=== PATIENT | male | born 1955 | race Caucasian/White ===

== ENCOUNTER → 2019-04-02 09:11 | Outpatient (BNVA) | payer MEDICARE, OTHER, SELFPAY | PROVIDERS: Family Provider Nurse Practitioner Family; PCP Nurse Practitioner Family; Visit Provider Nurse Practitioner Family | DX: E11.9 Type 2 diabetes mellitus without complications (principal); G47.9 Sleep disorder, unspecified | CPT/HCPCS: 36416; 83036 ==

== ENCOUNTER → 2019-07-06 09:00 | Outpatient (BNVA) | payer MEDICARE, OTHER, SELFPAY | PROVIDERS: Family Provider Nurse Practitioner Family; PCP Nurse Practitioner Family; Visit Provider Nurse Practitioner Family | DX: E11.9 Type 2 diabetes mellitus without complications (principal) | CPT/HCPCS: 82044; 83036 ==

== ENCOUNTER → 2019-07-20 09:00 | Outpatient (BNVA) | payer MEDICARE, OTHER, SELFPAY | PROVIDERS: Family Provider Nurse Practitioner Family; PCP Nurse Practitioner Family; Visit Provider Nurse Practitioner Family | DX: I10 Essential (primary) hypertension (principal); G56.03 Carpal tunnel syndrome, bilateral upper limbs; E78.5 Hyperlipidemia, unspecified; M72.2 Plantar fascial fibromatosis; E11.9 Type 2 diabetes mellitus without complications; Z00.00 Encounter for general adult medical examination without abnormal findings; Z68.32 Body mass index [BMI] 32.0-32.9, adult | CPT/HCPCS: 80053; 80061; 84153; 84439; 84443 ==

== ENCOUNTER → 2019-09-30 10:02 | Outpatient (BNVA) | payer MEDICARE, OTHER, SELFPAY | PROVIDERS: Family Provider Nurse Practitioner Family; PCP Nurse Practitioner Family; Visit Provider Nurse Practitioner Family | DX: E11.9 Type 2 diabetes mellitus without complications (principal); Z68.30 Body mass index [BMI] 30.0-30.9, adult | CPT/HCPCS: 83036 ==

== ENCOUNTER → 2019-12-30 08:29 | Outpatient (BNVA) | payer MEDICARE, OTHER, SELFPAY | PROVIDERS: Family Provider Nurse Practitioner Family; PCP Nurse Practitioner Family; Visit Provider Nurse Practitioner Family | DX: E11.9 Type 2 diabetes mellitus without complications (principal); Z68.31 Body mass index [BMI] 31.0-31.9, adult | CPT/HCPCS: 83036 ==

== ENCOUNTER → 2020-04-11 09:47 | Outpatient (BNVA) | payer MEDICARE, OTHER, SELFPAY | PROVIDERS: Family Provider Nurse Practitioner Family; PCP Nurse Practitioner Family; Visit Provider Nurse Practitioner Family | DX: E11.9 Type 2 diabetes mellitus without complications (principal); E78.5 Hyperlipidemia, unspecified | CPT/HCPCS: 80053; 80061; 83036 ==

== ENCOUNTER → 2020-05-02 11:14 | Outpatient (BNVA) | payer MEDICARE, OTHER, SELFPAY | PROVIDERS: Family Provider Nurse Practitioner Family; PCP Nurse Practitioner Family; Visit Provider Nurse Practitioner Family | DX: R10.9 Unspecified abdominal pain (principal); R31.9 Hematuria, unspecified | CPT/HCPCS: 80053; 81000; 85025 ==

== ENCOUNTER 2020-05-04 07:54 | Outpatient (CLI) | payer MEDICARE, OTHER, SELFPAY ==
--- NOTE | 2020-05-04 08:15 | CT_ITS ---
WS: [id number] CT ABDOMEN AND PELVIS NONCONTRAST HISTORY: R31.9 - Hematuria, unspecified TECHNIQUE: Imaging performed through the abdomen and pelvis. Coronal and sagittal reformats are submi tted. All CT scans at [facility] use at least one of these dose optimization techniques: automated exposure control; mA and/or kV adjustment per patient size (includes targeted exams where d ose is matched to clinical indication); or iterative reconstruction. DLP: 1195.38 mGycm COMPARISON: None available. Lower thorax: Lung bases are clear. Visualized heart is normal. No hiatal hernia. Liver: Normal size liver. No mass or bile duct dilatation. Gallbladder: Normal gallbladder. Pancreas: Mild fatty replacement. Spleen: Normal size with granulomata. Adrenal glands: Normal. No mass. Right kidney: Normal size kidney with no mass or hydronephrosis. Left kidney: Exophytic low-attenuation mass from the upper pole measures 2.4 cm. There are a few smal l central parapelvic cyst. No obstruction or calcification. Ureter is normal caliber. Aorta: Mild atherosclerosis abdominal aorta with no aneurysm. No free fluid, intraperitoneal air or significant lymphadenopathy. GI tract: Mild constipation. Moderate amount of diverticula in the distal colon. No acute diverticuli tis. The appendix is normal. Abdominal wall: Very tiny umbilical hernia containing fat only. Pelvis: Normally distended urinary bladder. Very slight lobulation of the prostate gland calcificatio ns. Osseous structures: Mild lumbar spondylosis. No osteoblastic or osteolytic bone disease. CT/CT kidney stone 54069 IMPRESSION: 1. No renal calcifications or obstruction. 2. Exophytic 2.4 cm mass from the upper pole LEFT kidney. May be a small cyst or complex cyst. Without further evaluation neoplasm is not excluded but though t less likely. Consider follow-up renal ultrasound for evaluation. 3. Atherosclerosis aorta. 4. Distal colonic diverticulosis without diverticulitis.
== END 2020-05-04 07:55 | disposition home or self-care (01) ==
LOC: RADWPI 08:00
PROVIDERS: PCP Nurse Practitioner Family; Visit Provider Nurse Practitioner Family
DX: R31.9 Hematuria, unspecified (principal); N28.89 Other specified disorders of kidney and ureter; I70.0 Atherosclerosis of aorta; K57.90 Diverticulosis of intestine, part unspecified, without perforation or abscess without bleeding
CPT/HCPCS: 74176

== ENCOUNTER 2020-05-05 07:52 | Outpatient (CLI) | payer MEDICARE, OTHER, SELFPAY ==
[2020-05-05] MEDS: iohexol 300 mg/mL 100 mL Btl IV (08:30)
--- NOTE | 2020-05-05 09:30 | CT_ITS ---
WS: [id number] CT ABDOMEN PELVIS TECHNIQUE: Noncontrast CT of the abdomen and contrast-enhanced CT of the abdomen and pelvis with seng nal and sagittal reformatted images. CLINICAL INFORMATION: K57.90 - Diverticulosis of intestine, part unspecified, without perforation or abscess without bleeding COMPARISON: May 04, 2020 DLP: 1208.[address] scans at [facility] use at least one of these dose optimization techniques: automat ed exposure control; mA and/or kV adjustment per patient size (includes targeted exams where dose is matched to clinical indication); or iterative reconstruction. FINDINGS: Mild diffuse fatty infiltration liver. Portal vein and splenic vein are patent. Cholelithiasis or sma ll polyp in the gallbladder neck. This can be further evaluated with ultrasound. Lung bases are well aerated. Calcified granuloma left lower lobe. Fatty atrophy of the pancreas. Splenic granulomas. Norm al GE junction. Adrenal glands are normal. Normal renal parenchymal enhancement. Bilateral renal cyst s are unchanged. No hydronephrosis in either kidney. No evidence of obstruction. Sigmoid diverticulosis. Thickening of the sigmoid colon is new since the prior examination suspicious for early or mild diverticulitis. No evidence of drainable abscess or fluid collection. Recommend co rrelation with symptoms of infection. No free fluid in the abdomen or pelvis. Normal caliber abdomina l aorta. Aortic calcification. Tiny fat-containing umbilical hernia. Normal nephrographic and excretory phases. Normal ureteral excretion. CT/CT abdomen pelvis wo/w 10132 IMPRESSION: 1. Mild diffuse thickening of the sigmoid colon with a small amount of surroun ding induration suspicious for early or mild acute diverticulitis. This is new from previous. 2. No other significant changes from previous. 3. Diffuse fatty infiltration liver. 4. Suggestion of tiny polyp or calculus in the gallbladder near the gallbladde r neck. No gallbladder wall thickening. This can be followed up with ultrasound . 5. Stable bilateral renal cysts. 6. No hydronephrosis or evidence of obstruction.
== END 2020-05-05 07:53 | disposition home or self-care (01) ==
LOC: RAD 07:56
PROVIDERS: PCP Nurse Practitioner Family; Visit Provider Nurse Practitioner Family
DX: K57.90 Diverticulosis of intestine, part unspecified, without perforation or abscess without bleeding (principal); Q61.02 Congenital multiple renal cysts; K76.0 Fatty (change of) liver, not elsewhere classified
CPT/HCPCS: 74178

== ENCOUNTER → 2020-05-09 10:13 | Outpatient (BNVA) | payer MEDICARE, OTHER, SELFPAY | PROVIDERS: PCP Nurse Practitioner Family; Visit Provider Nurse Practitioner Family | DX: R10.9 Unspecified abdominal pain (principal) | CPT/HCPCS: 81000 ==

== ENCOUNTER 2020-07-08 08:20 | Outpatient (CLI) | payer MEDICARE, OTHER, SELFPAY ==
--- NOTE | 2020-07-08 09:30 | US_ITS ---
WS: [id number] RIGHT UPPER QUADRANT ULTRASOUND HISTORY: Possible gallbladder polyp or stone seen on prior CT. COMPARISON: 05/05/2020 Liver: 16.1 cm in length. Liver is normal size. There is moderate coarsened echotexture from hepatic steatosis. No mass or bile duct dilatation. Gallbladder: Normally distended gallbladder with no stones or wall thickening. No polyp identified. CBD: 0.5 cm Pancreas: Normal size and echogenicity. Right kidney: 11.2 cm in length. Normal size and echogenicity. No hydronephrosis or mass. Aorta and IVC: Unremarkable abdominal aorta and IVC. No ascites. US/US gall bladder 83220 IMPRESSION: 1. Negative gallbladder. No cholelithiasis or polyp is identified by ultrasoun d. 2. No bile duct dilatation. 3. Moderate hepatic steatosis.
== END 2020-07-08 08:21 | disposition home or self-care (01) ==
LOC: US 08:22
PROVIDERS: PCP Nurse Practitioner Family; Visit Provider Nurse Practitioner Family
DX: R93.2 Abnormal findings on diagnostic imaging of liver and biliary tract (principal); K76.0 Fatty (change of) liver, not elsewhere classified
CPT/HCPCS: 76705

== ENCOUNTER → 2020-07-11 08:55 | Outpatient (BNVA) | payer MEDICARE, OTHER, SELFPAY | PROVIDERS: PCP Nurse Practitioner Family; Visit Provider Nurse Practitioner Family | DX: E11.9 Type 2 diabetes mellitus without complications (principal) | CPT/HCPCS: 83036 ==

== ENCOUNTER → 2020-07-13 14:56 | Outpatient (BNVA) | payer MEDICARE, OTHER, SELFPAY | PROVIDERS: PCP Nurse Practitioner Family; Visit Provider Internal Medicine | DX: R10.9 Unspecified abdominal pain (principal); Z01.812 Encounter for preprocedural laboratory examination; Z20.822 Contact with and (suspected) exposure to COVID-19 | CPT/HCPCS: 87635 ==

== ENCOUNTER 2020-07-18 08:22 | Day surgery (SDC) | payer MEDICARE, OTHER, SELFPAY ==
--- NOTE | 2020-07-18 08:39 | ANES.PREANE2 ---
Pre-Anesthetic Assessment Pre-Anesthetic Assessment: Height/Weight: Height 1.75 m Weight 93.894 kg Preop Diagnosis: abdominal pain Proposed Procedure: Operation Date: 07/18/20 10:00 Proposed Procedures p EGD 79801 R10.9(Not Applicable) - Benedicto Harper MD Familial anesthetic complications: None Was Beta Mei taken within 24 hours: N/A Was Clonidine taken within 24 hours: N/A Last intake: NPO > 8 hrs Social: Social History: No alcohol and No tobacco Exam: Pre-Anes Outpt Exam: alert, oriented x 3, clear to auscultation bilaterally and regular rate & rhythm Airway: Cervical ROM: WNL MP: 4 Dentition: Other (missing teeth) Metabolic: Metabolic: DM and Hyperlipidemia Anesthetic Plan: ASA status: 3 Anesthesia: MAC Risk of > 500 ml blood loss (7ml/kg in children): No PFSH Anesthesia PFSH: Medical History (Updated 07/13/20 @ 14:51 by Benedicto Harper MD) Hyperlipidemia Type 2 diabetes mellitus without complication Family History Other CAD (coronary artery disease) Cancer Social History Smoking and tobacco status: former smoker Data Anesthesia Cardiac Studies: No Data to Display
--- NOTE | 2020-07-18 08:56 | P.HP_ITS ---
Same Day Surgery H&P Indication for Procedure/HPI DATE OF PROCEDURE: July 18, 2020 CHIEF COMPLAINT/INDICATIONFOR SURGICAL PROCEDURE: Abdominal pain and unintentional weight loss. PREOP DIAGNOSIS: abdominal pain PLANNED PROCEDRUE: Operation Date: 07/18/20 10:00 Proposed Procedures p EGD 01490 R10.9(Not Applicable) - Benedicto Harper MD Medications/Allergies* Home Medications Medication Instructions Recorded Confirmed Type brimonidine 0.2 % eye drops 1 drop OPHTHALMIC (EYE) Q8H 03/20/19 07/14/20 History latanoprost 0.005 % eye drops 1 drop OPHTHALMIC (EYE) ONCE 03/20/19 07/14/20 History timolol 0.5 % eye drops 1 drop OPHTHALMIC (EYE) BID 03/20/19 07/14/20 History ibuprofen 200 mg capsule 200 mg PO Q6H PRN 05/13/19 07/14/20 History aspirin [Baby Aspirin] 81 mg PO DAILY 07/14/20 07/14/20 History docusate sodium [Stool Softener] 100 mg PO BID 07/14/20 07/14/20 History Allergies/Adverse Reactions Allergy/AdvReac Type Severity Reaction Status Date / Time Penicillins Allergy Unknown Verified 07/13/20 14:13 Pertinent History/Comorbid Conditions* Medical History (Updated 07/13/20 @ 14:51 by Benedicto Harper MD) Hyperlipidemia Type 2 diabetes mellitus without complication Family History (Updated 03/20/19 @ 09:20 by Larissa Isabel LPN) CAD (coronary artery disease) Cancer Social History Smoking and tobacco status: former smoker Pertinent Exam Findings alert, oriented x 3, clear to auscultation bilaterally, regular rate & rhythm, operative site marked and procedure specific exam findings Recommendations Surgery/Procedure today Coding Level of Care Code Acute Plant Facilities Technician for Kunal Olivo
[2020-07-18 09:08] VITALS: BP 152/103; PULSE 81; RESP 18; TEMP 36.6; O2SAT 97
[2020-07-18] MEDS: sodium chloride 0.9% 1,000 ML 30 ML IV (09:30)
[2020-07-18 10:35] LABS: Glucose Point of Care 247 mg/dL (70-110)
--- NOTE | 2020-07-18 11:35 | ANE.PACU2 ---
Inpatient post-anesthesia follow up: Airway intact: Yes Vital signs: Temperature 97.9 F Pulse Rate 81 Respiratory Rate 18 Blood Pressure 152/103 Pulse Oximetry 97 Oxygen Delivery Me thod Room Air Oxygen Flow Rate Fraction of Inspir ed Oxygen Hydration adequate: Yes Nausea and vomiting: No Pain level: 1 Mental status: Baseline
[2020-07-18 11:40] VITALS: BP 149/92; PULSE 79; RESP 16; TEMP 36.3; O2SAT 94
[2020-07-19 15:44] LABS: H. Pylori / CLO Test Negative
== END 2020-07-18 12:30 | disposition home or self-care (01) ==
PROVIDERS: PCP Nurse Practitioner Family; Visit Provider Internal Medicine
PROC: 0DJ08ZZ Inspection of Upper Intestinal Tract, Via Natural or Artificial Opening Endoscopic (ICD-10-PCS; CPT 43235; principal; 2020-07-18 10:00)
DX: R10.9 Unspecified abdominal pain (principal); R63.4 Abnormal weight loss; K25.9 Gastric ulcer, unspecified as acute or chronic, without hemorrhage or perforation; K29.70 Gastritis, unspecified, without bleeding; Z79.82 Long term (current) use of aspirin; E78.5 Hyperlipidemia, unspecified; E11.9 Type 2 diabetes mellitus without complications; Z82.49 Family history of ischemic heart disease and other diseases of the circulatory system; Z87.891 Personal history of nicotine dependence
CPT/HCPCS: 36416; 43239; 82962; 87077; 96360; 96361; J2704; J7030

== ENCOUNTER 2020-07-23 16:17 | Emergency (ER) | payer MEDICARE, OTHER, SELFPAY ==
[2020-07-23 16:23] VITALS: BP 153/100; PULSE 104; RESP 16; TEMP 36.7; O2SAT 96; BMI 30.5
[2020-07-23 17:28] LABS: Add Urine Microscopic? NO; Charge for UA Resulting for Rev
[2020-07-23 17:29] VITALS: BP 145/96; PULSE 96; RESP 16; O2SAT 98
[2020-07-23 17:31] LABS: Bilirubin Urine Neg (Negative); Blood Urine Neg (Negative); Glucose Urine UA 4+ (Normal); Ketones Urine 1+ (Negative); Leukocyte Esterase Urine Negative (Negative); Nitrate Urine Negative (Negative); Protein Urine Neg (Negative); Urine Appearance Clear (CLEAR); Urine Color Yellow (Yellow); Urobilinogen Urine Norm (Negative); pH Urine 5 (5-7)
--- NOTE | 2020-07-23 17:40 | W.ED.ABDPA2 ---
HPI - Abdominal Pain General: Chief Complaint: Abdominal Pain Stated Complaint: ABD PAIN/ DIARRHEA Time Seen by Provider: 07/23/20 16:32 Source: patient Mode of arrival: ambulatory Limitations: no limitations History of Present Illness: HPI narrative: Patient is a 65-year-old male with a history of diabetes mellitus, insulin-dependent who presents to the emergency department with abdominal pain. Symptoms have been intermittent and ongoing for a few months but have gotten worse in the last week or so. Because of the pain he had an upper GI endoscopy 6 days ago and since then his pain has been much worse. Pain is in the epigastric region and also in his lower abdomen and radiates to his back. Patient is so severe that he is unable to sleep. He also states that he started having diarrhea that started about 5 to 6 days ago. He has several episodes and it is now getting much better. He denies any fever. Because he is unable to take the pain any longer presents to the emergency department to be evaluated. MD elicited complaint: abdominal pain Pertinent past history: none Onset (ago): month(s) Pain Consistency: intermittent Location: Epigastric, RLQ and LLQ Severity: severe Quality: stabbing Radiation: back Exacerbating factors: nothing Relieving factors: nothing Associated Symptoms: Reports diarrhea; Denies anorexia, belching, bloating, change in stool character, chills, coffee ground emesis, constipation, GI cramping, dyspepsia, dysuria, excessive flatus, fever(s), heartburn, hematochezia, hematuria, hematemesis, fecal incontinence, loose stools, melena, nausea, poor appetite, syncope and vomiting Review of Systems General: Reports: 10 or more systems reviewed and unremarkable except in HPI and below Const: Denies: fever(s) or chills Card: Denies: syncope GI: Reports: diarrhea; Denies: nausea, vomiting, hematemesis, coffee ground emesis, heartburn, constipation, bloating, GI cramping, belching, excessive flatus, fecal incontinence, change in stool character, hematochezia or melena : Denies: dysuria or hematuria Physical Exam Const: COMMON NORMALS: no acute distress, average body habitus, patient oriented x3, no limitations, healthy appearing, alert and well nourished HENMT: COMMON NORMALS: normocephalic, atraumatic and moist oral mucous membranes HEAD & SCALP: normocephalic and atraumatic Neck/C-Spine: COMMON NORMALS: no meningeal signs and no JVD Resp: COMMON NORMALS: normal respiratory effort, No retractions, No use of accessory muscles, clear to auscultation bilaterally and percussion normal AUSCULTATION: clear to auscultation bilaterally PERCUSSION: percussion normal Cardio: COMMON NORMALS: no JVD, regular rate, regular rhythm, S1 normal heart sound present, S2 normal heart sound present, No gallops present (Cardio), No clicks present (Cardio), No murmurs present (Cardio), No rub (Cardio) and Peripheral pulses 2+ throughout RATE: regular rate RHYTHM: regular rhythm HEART SOUNDS: S1 normal heart sound present and S2 normal heart sound present PERIPHERAL PULSES: Peripheral pulses 2+ throughout GI: COMMON NORMALS: Normal to inspection, nondistended, normoactive bowel sounds present, Soft to palpation, No hepatosplenomegaly present, no masses and no bruits PALPATION: Yes Soft to palpation, Yes Tenderness to palpation present (GI) (epigastric), No Guarding due to palpation present (GI), No Rigid due to palpation and Yes No hepatosplenomegaly present Extremity: COMMON NORMALS: normal to inspection, full ROM, capillary refill normal, no calf tenderness and no pedal edema Neuro: COMMON NORMALS: patient oriented x3 SENSORIUM/ORIENTATION: Yes alert MENINGEAL SIGNS: Yes no meningeal signs Skin: COMMON NORMALS: no rashes or lesions noted, no wounds, turgor normal, no jaundice, no petechiae and no mottling GENERAL SKIN EXAM: no rashes or lesions noted and turgor normal Course Reevaluation(s): Reevaluation #1: Discussed his lab and imaging findings with him, unremarkable for significant acute findings. Discussed performing a trial of metoclopramide in case this is related to gastroparesis or other form of neuropathy affecting his GI tract. He was open to try this. He will also follow-up with his primary care provider. He voiced understanding and is in agreement with the plan. Time: 20:24 Vital Signs: Vital signs: Vital Signs Temperature 98.1 F 07/23/20 16:23 Pulse Rate 86 07/23/20 20:05 Respiratory Rate 16 07/23/20 20:05 Blood Pressure 153/86 07/23/20 20:05 Pulse Oximetry 96 07/23/20 20:05 MDM - Abdominal Pain MDM Narrative: Medical decision making narrative: 65-year-old male who presents with a history of abdominal pain that has been ongoing for a few months but seems to be getting a little worse. He is an insulin-dependent diabetic patient. He had an upper GI endoscopy 6 days ago and ever since he has been having diarrhea. Evaluation in the emergency department is unremarkable including laboratory work-up as well as CT scan. Because he is diabetic and his pain is longstanding and monitoring if he has gastroparesis and autonomic neuropathy. He apparently was diagnosed with either gastritis or gastric ulcer following the upper GI endoscopy. As a trial he will try metoclopramide to see if this helps his symptoms in case it is related to gastroparesis. He will otherwise continue his home medications. Medical Records: Attestation: I reviewed the patient's medical records. Lab Data: Attestation: I reviewed the patient's lab results. Labs: Lab Results 07/23/20 07/23/20 07/23/20 Range/Units 17:12 17:36 17:36 WBC 10.0 (4.0-10.0) 10^3/ uL RBC 5.16 (4.1-5.3) 10^6/u L Hgb 15.3 (11.7-16.6) g/dL Hct 46.6 (42.0-52.0) % MCV 90.3 (80-94) fL MCH 29.7 (28.0-34.0) pg MCHC 32.8 (30.0-36.0) g/dL RDW 13.3 (12.1-15.1) % Plt Count 304 (130-400) 10^3/c mm MPV 10.7 H (7.4-10.4) fL Neut % (Auto) 72.4 % Lymph % (Auto) 18.1 % [place] % (Auto) 7.0 % Eos % (Auto) 1.6 % Baso % (Auto) 0.6 % Neut # (Auto) 7.25 (1.8-7.7) 10^3/u L Lymph # (Auto) 1.8 (0.8-4.8) 10^3/u L [place] # (Auto) 0.7 (0.2-0.9) 10^3/u L Eos # (Auto) 0.2 (0.0-0.8) 10^3/u L Baso # (Auto) 0.1 (0.0-0.1) 10^3/u L Nucleated RBC % (a uto) 0 % Nucleated RBCs # 0.0 /100WBC Sodium 134 L (136-145) mmol/L Potassium 4.5 (3.5-5.1) mmol/L Chloride 100 (98-107) mmol/L Carbon Dioxide 20 L (22-29) mmol/L Anion Gap 18.5 (5-19) BUN 18 (8-23) mg/dL Creatinine 0.7 (0.7-1.2) mg/dL GFR Calculation 112.5 (90-130) mL/min Glucose 325 H (65-115) mg/dL Calculated Osmolal ity 292 (285-295) mOsm/k g Lactate (0.5-2.2) mmol/L Calcium 8.8 (8.5-10.5) mg/dL Total Bilirubin 0.4 (0.15-1.2) mg/dL AST 14 (0-40) U/L ALT 22 (0-41) U/L Alkaline Phosphata se 62 (40-130) IU/L Creatine Kinase 72 (39-308) U/L C-Reactive Protein 0.6 (0.0-4.9) mg/L Total Protein 7.1 (6.6-8.7) g/dL Albumin 4.0 (3.5-5.2) g/dL Globulin 3.1 (1.3-4.6) g/dL Lipase 37 (13-60) U/L Urine Color Yellow (Yellow) Urine Appearance Clear (CLEAR) Urine pH 5 (5-7) Ur Specific Gravit y 1.020 (1.005-1.030) Urine Protein Neg (Negative) Urine Glucose (UA) 4+ H (Normal) Urine Ketones 1+ H (Negative) Urine Blood Neg (Negative) Urine Nitrate Negative (Negative) Urine Bilirubin Neg (Negative) Urine Urobilinogen Norm (Negative) mg/dL Ur Leukocyte Myah ase Negative (Negative) 07/23/20 Range/Units 17:36 WBC (4.0-10.0) 10^3/ uL RBC (4.1-5.3) 10^6/u L Hgb (11.7-16.6) g/dL Hct (42.0-52.0) % MCV (80-94) fL MCH (28.0-34.0) pg MCHC (30.0-36.0) g/dL RDW (12.1-15.1) % Plt Count (130-400) 10^3/c mm MPV (7.4-10.4) fL Neut % (Auto) % Lymph % (Auto) % [place] % (Auto) % Eos % (Auto) % Baso % (Auto) % Neut # (Auto) (1.8-7.7) 10^3/u L Lymph # (Auto) (0.8-4.8) 10^3/u L [place] # (Auto) (0.2-0.9) 10^3/u L Eos # (Auto) (0.0-0.8) 10^3/u L Baso # (Auto) (0.0-0.1) 10^3/u L Nucleated RBC % (a uto) % Nucleated RBCs # /100WBC Sodium (136-145) mmol/L Potassium (3.5-5.1) mmol/L Chloride (98-107) mmol/L Carbon Dioxide (22-29) mmol/L Anion Gap (5-19) BUN (8-23) mg/dL Creatinine (0.7-1.2) mg/dL GFR Calculation (90-130) mL/min Glucose (65-115) mg/dL Calculated Osmolal ity (285-295) mOsm/k g Lactate 2.6 H (0.5-2.2) mmol/L Calcium (8.5-10.5) mg/dL Total Bilirubin (0.15-1.2) mg/dL AST (0-40) U/L ALT (0-41) U/L Alkaline Phosphata se (40-130) IU/L Creatine Kinase (39-308) U/L C-Reactive Protein (0.0-4.9) mg/L Total Protein (6.6-8.7) g/dL Albumin (3.5-5.2) g/dL Globulin (1.3-4.6) g/dL Lipase (13-60) U/L Urine Color (Yellow) Urine Appearance (CLEAR) Urine pH (5-7) Ur Specific Gravit y (1.005-1.030) Urine Protein (Negative) Urine Glucose (UA) (Normal) Urine Ketones (Negative) Urine Blood (Negative) Urine Nitrate (Negative) Urine Bilirubin (Negative) Urine Urobilinogen (Negative) mg/dL Ur Leukocyte Myah ase (Negative) Imaging Data ^: CT Abd/Pel: Attestation: I personally reviewed and interpreted this imaging study as follows: Radiologist's impression: [id number] [place], [place] [id number] Scan ReportSigned Patient: Amadeo Gaines #: [id number]: 1955cct#:[id number]/Sex: 65 / MADM Date: 07/23/20Loc: ERRoom/Bed:Attending Dr: Ordering Provider/Ordering MD: Chandler De La Paz MD, [facility] [place] Date of Service: 07/23/20 Procedure(s): CT abdomen pelvis w con* [id number] Accession Number(s): [id number] Report Number: [id number] PROCEDURE INFORMATION: Exam: CT Abdomen And Pelvis With Contrast Exam date and time: 07/23/2020 6:23 PM Age: 65 years old Clinical indication: Abdominal pain; Generalized; Patient HX: C/O intermittent abd pain x months worsening x 1 week w diarrhea TECHNIQUE: Imaging protocol: Computed tomography of the abdomen and pelvis with contrast. Total images: 241 Radiation optimization: All CT scans at this facility use at least one of these dose optimization techniques: automated exposure control; mA and/or kV adjustment per patient size (includes targeted exams where dose is matched to clinical indication); or iterative reconstruction. Contrast material: OMNI 300; Contrast volume: 95 ml; Contrast route: INTRAVENOUS (IV); COMPARISON: No relevant prior studies available. RADIATION DOSE METRICS: Total DLP (mGy-cm): 1620.33 FINDINGS: Lungs: Limited assessment of the lung bases fails to reveal evidence for active cardiopulmonary process. Liver: No visible hepatic mass or cystic structure. Gallbladder and bile ducts: Normal. No calcified stones. No ductal dilation. Pancreas: Moderate fatty replacement of pancreas. No visible pancreatic ductal ectasia. Spleen: Small splenic hemangioma. Splenic calcified granulomas of antecedent disease. Spleen otherwise unremarkable. Adrenal glands: Adrenal glands unremarkable. Kidneys and ureters: No hydronephrosis or perinephric fluid bilaterally. No visible nephrolithiasis or visible ureterolithiasis. Bilateral small simple renal cortical cysts. No follow-up recommended. Stomach and bowel: Diverticulosis coli, most extensive sigmoid colon, without visible evidence for acute diverticulitis. Nonobstructive bowel pattern. No visible adynamic or reactive ileus. Appendix: The appendix is visualized and appears noninflamed. Intraperitoneal space: No visible evidence of mesenteric lymphadenitis or active mesenteritis/panniculitis. No visible pneumoperitoneum or intraperitoneal ascites. Vasculature: Portal vein patent. The abdominal aorta is nonaneurysmal. Moderate arterial sclerotic disease. Lymph nodes: No current visible evidence of active mesenteric or retroperitoneal lymphadenopathy. Urinary bladder: Urinary bladder unremarkable. Reproductive: Mild prostate hypertrophy. Bones/joints: No visible active or acute osseous pathology. Soft tissues: Bilateral small inguinal hernias containing fat only, left slightly larger than right. Other findings: Obesity. CT/CT abdomen pelvis w con* [id number] IMPRESSION: 1. Currently no visible evidence for acute abdominal or pelvic pathologic process. 2. Extensive diverticulosis coli, most abundant sigmoid colon, without visible evidence for acute diverticulitis. COMMENTS: Consistent with the [employer]'s Incidental Findings Committee white paper (J Am Mina Radiol 2018): Any incidental renal lesion less than 1 cm or classified as too small to characterize, or any incidental cystic renal lesion characterized as simple-appearing, is likely benign. No follow-up imaging is recommended for these lesions per consensus recommendations based on imaging criteria. Radiation Dose CTDIVOL = (mGy): DLP = 1620.33 (mGy-cm) Dictated By:Cholo Mathews By:Cholo Mathews Date/Time:07/23/20D/ 33 Discharge Plan Discharge Patient Disposition: Home Clinical Impression: Abdominal pain Qualifiers: Abdominal location: generalized Qualified Code(s): R10.84 - Generalized abdominal pain Condition: Stable Prescriptions: New Reglan 10 mg tablet 10 mg PO Q6H PRN (Reason: nausea and vomiting) Qty: 30 RF: 0 Continued latanoprost 0.005 % Drops 1 drp OPHTHALMIC (EYE) DAILY RF: 0 pioglitazone [Actos] 45 mg Tablet 45 mg PO DAILY RF: 0 timolol 0.5 % Drops 1 drp OPHTHALMIC (EYE) BID RF: 0 pantoprazole 40 mg Tablet,Delayed Release (Dr/Ec) 40 mg PO DAILY RF: 0 metformin 1,000 mg Tablet 1,000 mg PO BID RF: 0 brimonidine 0.2 % Drops 1 drp OPHTHALMIC (EYE) Q8H RF: 0 aspirin 81 mg Tablet,Chewable 81 mg PO DAILY RF: 0 zolpidem [Ambien] 10 mg Tablet 10 mg PO BEDTIME RF: 0 insulin asp prt-insulin aspart [Novolog Mix 70-30 U-100 Insuln] 100 unit/mL (70-30) Solution 60 unit SUBCUT BID RF: 0 Colace 100 mg Capsule 100 mg PO BID RF: 0 lovastatin 20 mg Tablet 20 mg PO DAILY RF: 0 Discharge Orders: Discharge ED (Routine); Ordered 07/23/20 Ordered By: Chandler De La Paz Referrals: Neno Orlando MD [Primary Care Provider] - 1-3 days Discharge Diet: As Directed Discharge Activity: Increase activity as tolerated Patient Instructions: Abdominal Pain (ED) Activity Restrictions/Additional Instructions: Return for any new or worsening symptoms. Follow-up with your primary care provider within 3 days. Take the new medication as prescribed before each meal and at bedtime for the next 3 days to see if it helps your symptoms. If he does you may need to continue taking it for longer, or you may take it as needed. Continue your home medications. Coding Level of Care Code ED Roulette Dealer for Kunal Fwtricia Exam Comprehensive
[2020-07-23 17:42] LABS: Basophils # 0.1 10^3/uL (0.0-0.1); Basophils % 0.6 %; Eosinophils # 0.2 10^3/uL (0.0-0.8); Eosinophils % 1.6 %; Hematocrit 46.6 % (42.0-52.0); Hemoglobin 15.3 g/dL (11.7-16.6); Lymphocytes # 1.8 10^3/uL (0.8-4.8); Lymphocytes % 18.1 %; Mean Corpuscular HGB Conc 32.8 g/dL (30.0-36.0); Mean Corpuscular Hemoglobin 29.7 pg (28.0-34.0); Mean Corpuscular Volume 90.3 fL (80-94); Mean Platelet Volume 10.7 fL (7.4-10.4); Monocytes # 0.7 10^3/uL (0.2-0.9); Neutrophils # 7.25 10^3/uL (1.8-7.7); Neutrophils % 72.4 %; Nucleated Red Blood Cells % 0 %; Platelet Count 304 10^3/cmm (130-400); Red Blood Count 5.16 10^6/uL (4.1-5.3); Red Cell Distribution Width 13.3 % (12.1-15.1)
[2020-07-23] MEDS: ondansetron 2 mg/ML SDV 2 mL 4 MG IVP (17:51)
[2020-07-23] MEDS: lidocaine 2% viscous 15 ML, aluminum-mag hydrox-simethicon 30 ML, sucralfate oral liq 1 GM PO (17:51)
[2020-07-23] MEDS: morphine 4 mg/mL SDV 1 mL IVP (17:51)
[2020-07-23] MEDS: pantoprazole 40 mg SDV IVP (17:51)
[2020-07-23 18:02] LABS: Alanine Aminotransferase 22 U/L (0-41); Alkaline Phosphatase 62 IU/L (40-130); Aspartate Amino Transferase 14 U/L (0-40); Blood Urea Nitrogen 18 mg/dL (8-23); C Reactive Protein 0.6 mg/L (0.0-4.9); Calcium 8.8 mg/dL (8.5-10.5); Carbon Dioxide 20 mmol/L (22-29); Chloride 100 mmol/L (98-107); Creatine Phosphokinase 72 U/L (39-308); Globulin 3.1 g/dL (1.3-4.6); Glomerular Filtration Rate 112.5 mL/min (90-130); Glucose 325 mg/dL (65-115); Lipase 37 U/L (13-60); Osmolality Calculated 292 mOsm/kg (285-295); Sodium 134 mmol/L (136-145); Total Bilirubin 0.4 mg/dL (0.15-1.2); Total Protein 7.1 g/dL (6.6-8.7)
[2020-07-23 18:03] VITALS: BP 161/94; PULSE 95; RESP 16; O2SAT 98
[2020-07-23 18:03] LABS: Lactate (Lactic Acid level) 2.6 mmol/L (0.5-2.2)
[2020-07-23 18:11] LABS: Anion Gap 18.5 (5-19)
[2020-07-23 18:12] LABS: Potassium 4.5 mmol/L (3.5-5.1)
--- NOTE | 2020-07-23 18:17 | CTR_ITS ---
PROCEDURE INFORMATION: Exam: CT Abdomen And Pelvis With Contrast Exam date and time: 07/23/2020 6:23 PM Age: 65 years old Clinical indication: Abdominal pain; Generalized; Patient HX: C/O intermittent abd pain x months worsening x 1 week w diarrhea TECHNIQUE: Imaging protocol: Computed tomography of the abdomen and pelvis with contrast. Total images: 241 Radiation optimization: All CT scans at this facility use at least one of these dose optimization techniques: automated exposure control; mA and/or kV adjustment per patient size (includes targeted exams where dose is matched to clinical indication); or iterative reconstruction. Contrast material: OMNI 300; Contrast volume: 95 ml; Contrast route: INTRAVENOUS (IV); COMPARISON: No relevant prior studies available. RADIATION DOSE METRICS: Total DLP (mGy-cm): 1620.33 FINDINGS: Lungs: Limited assessment of the lung bases fails to reveal evidence for active cardiopulmonary process. Liver: No visible hepatic mass or cystic structure. Gallbladder and bile ducts: Normal. No calcified stones. No ductal dilation. Pancreas: Moderate fatty replacement of pancreas. No visible pancreatic ductal ectasia. Spleen: Small splenic hemangioma. Splenic calcified granulomas of antecedent disease. Spleen otherwise unremarkable. Adrenal glands: Adrenal glands unremarkable. Kidneys and ureters: No hydronephrosis or perinephric fluid bilaterally. No visible nephrolithiasis or visible ureterolithiasis. Bilateral small simple renal cortical cysts. No follow-up recommended. Stomach and bowel: Diverticulosis coli, most extensive sigmoid colon, without visible evidence for acute diverticulitis. Nonobstructive bowel pattern. No visible adynamic or reactive ileus. Appendix: The appendix is visualized and appears noninflamed. Intraperitoneal space: No visible evidence of mesenteric lymphadenitis or active mesenteritis/panniculitis. No visible pneumoperitoneum or intraperitoneal ascites. Vasculature: Portal vein patent. The abdominal aorta is nonaneurysmal. Moderate arterial sclerotic disease. Lymph nodes: No current visible evidence of active mesenteric or retroperitoneal lymphadenopathy. Urinary bladder: Urinary bladder unremarkable. Reproductive: Mild prostate hypertrophy. Bones/joints: No visible active or acute osseous pathology. Soft tissues: Bilateral small inguinal hernias containing fat only, left slightly larger than right. Other findings: Obesity. CT/CT abdomen pelvis w con* [id number] IMPRESSION: 1. Currently no visible evidence for acute abdominal or pelvic pathologic process. 2. Extensive diverticulosis coli, most abundant sigmoid colon, without visible evidence for acute diverticulitis. COMMENTS: Consistent with the [place] [employer] [employer]'s Incidental Findings Committee white paper (J Am Mina Radiol 2018): Any incidental renal lesion less than 1 cm or classified as too small to characterize, or any incidental cystic renal lesion characterized as simple-appearing, is likely benign. No follow-up imaging is recommended for these lesions per consensus recommendations based on imaging criteria. Radiation Dose CTDIVOL = (mGy): DLP = 1620.33 (mGy-cm)
[2020-07-23] MEDS: iohexol 300 mg/mL 100 mL Btl IV (18:59)
[2020-07-23 19:08] VITALS: BP 162/101; PULSE 83; RESP 16; O2SAT 98
[2020-07-23 20:05] VITALS: BP 153/86; PULSE 86; RESP 16; O2SAT 96
[2020-07-23] MEDS: metoclopramide 10 mg Tablet PO (20:39)
== END 2020-07-23 20:46 | disposition home or self-care (01) ==
PROVIDERS: Emergency Provider Family Medicine; PCP Family Medicine
DX: R10.84 Generalized abdominal pain (principal); Z79.82 Long term (current) use of aspirin; Z79.4 Long term (current) use of insulin; E11.9 Type 2 diabetes mellitus without complications
CPT/HCPCS: 74177; 80053; 81003; 82550; 83605; 83690; 85025; 86140; 96374; 96375; 99284; C9113; J2270; J2405; J8597; Q9967

== ENCOUNTER 2020-08-15 08:22 | Outpatient (CLI) | payer MEDICARE, OTHER, SELFPAY ==
--- NOTE | 2020-08-15 08:36 | NM_ITS ---
WS: [id number] NUCLEAR MEDICINE HIDA SCAN WITH GALLBLADDER EJECTION FRACTION HISTORY: EPIGASTRIC PAIN COMPARISON: Gallbladder ultrasound 07/08/2020. TECHNIQUE: The patient was intravenously injected with 4.9 mCi of TC99m Mebrofenin. Immediate imaging over the right upper quadrant was followed by 5 minute image and additional images for a total of 60 minutes. Normal uptake of radiotracer throughout the liver. Activity identified in the gallbladder at 10 minutes and well distended by 60 minutes. Activity in the proximal small bowel was seen by 30 minutes. Good washout of the radiotracer from the liver by 60 minutes. The patient then drank 8 ounces of Ensure Plus. Ejection fraction at 60 minutes was 55%. Normal GB ej ection fraction is 35-75%. Post fatty meal symptoms: None. NM/NM hepatobiliary w phar* [id number] IMPRESSION: 1. Normal HIDA scan. 2. Normal gallbladder ejection fraction.
== END 2020-08-15 08:23 | disposition home or self-care (01) ==
LOC: RAD 08:24
PROVIDERS: PCP Nurse Practitioner Family; Visit Provider Internal Medicine
DX: R10.13 Epigastric pain (principal)
CPT/HCPCS: 78227; A9537

== ENCOUNTER → 2020-09-15 13:25 | Outpatient (BNVA) | payer MEDICARE, OTHER, SELFPAY | PROVIDERS: PCP Nurse Practitioner Family; Visit Provider Nurse Practitioner Family | DX: E78.5 Hyperlipidemia, unspecified (principal); R10.13 Epigastric pain | CPT/HCPCS: 80053; 80061; 86003 ==

== ENCOUNTER 2020-09-29 14:34 | Outpatient (CLI) | payer MEDICARE, OTHER, SELFPAY ==
--- NOTE | 2020-09-29 16:00 | MR_ITS ---
WS: [id number] MRI THORACIC SPINE WITHOUT CONTRAST TECHNIQUE: Sagittal T1, T2 and STIR imaging. Axial T2 imaging. Noncontrast imaging obtained. CLINICAL INFORMATION: M54.9 - Dorsalgia, unspecified COMPARISON: None. FINDINGS: Mild thoracic curve. No acute compression. No high-grade central canal stenosis. Cord signal is brice l. CSF pulsation artifact in the dorsal spinal canal. Small central disc protrusions in the mid and l ower thoracic spine at T5-T6, T8-T9, T9-T10, and left T10-T11. No significant central canal stenosis. Moderate facet arthropathy lower thoracic spine. Mild to moderate bony foraminal narrowing more prominent at right T3-T4, right T4-5, bilateral T5-T6, right greater than left T8-9, and bilateral T10-11. Postoperative changes ACDF C5-C7. Hemangioma T10 vertebral body. MR/MR thoracic spin wo con* [id number] IMPRESSION: 1. Mild thoracic curve. No acute compression. No high-grade central canal sten osis. 2. Cord signal is normal. 3. A few tiny disc protrusions in the mid and lower thoracic spine described a suraj more prominent at T8-T9. 4. Mild multilevel bony foraminal narrowing described above. 5. Moderate facet arthropathy in the lower thoracic spine.
--- NOTE | 2020-09-29 16:45 | MR_ITS ---
WS: [id number] MRI LUMBAR SPINE NONCONTRAST TECHNIQUE: Sagittal T1, T2 and STIR imaging. Axial T1 and T2 imaging. CLINICAL INFORMATION: M54.9 - Dorsalgia, unspecified COMPARISON: None. FINDINGS: Mild lumbar curve. No acute compression. Slight retrolisthesis L3 on L4. L1-L2: No significant disc bulging. Spinal canal and foramen are patent. L2-L3: Mild annular bulging. Moderate facet arthropathy with ligamentum flavum hypertrophy. Mild cent ral canal stenosis. Slight impingement on the left subarticular recess. Mild left foraminal narrowing . L3-L4: Slight retrolisthesis. Shallow right pericentral protrusion with mild central canal stenosis. Slight impingement traversing L4 nerve roots bilaterally. Moderate facet arthropathy with ligament fl avum hypertrophy. Small bilateral foraminal protrusions with mild bilateral foraminal narrowing right greater than left. L4-L5: Slight anterolisthesis L4 on L5. Mild annular bulging with slight impingement traversing L5 ne rve roots bilaterally. Moderate facet arthropathy with ligament flavum hypertrophy. Small facet effus ions. Small right foraminal protrusion with mild right foraminal narrowing L5-S1: Mild annular bulging. Slight impingement on the traversing left S1 nerve root. Moderate facet arthropathy ligament flavum hypertrophy. Foramen are patent. Small right renal cyst. Impression Visualized pelvic bony structures: Normal. Paravertebral soft tissues: Normal. MR/MR lumbar spine wo con* [id number] IMPRESSION: 1. Mild lumbar curve. No acute compression. No high-grade central canal stenos is. 2. Mild central canal stenosis L2-L3 L3-L4 and L4-L5. Narrowing of the left L2 -3, bilateral L3-4, and bilateral L4-5 subarticular recess. 3. Mild right foraminal narrowing L4-5 with contact of the exiting right L4 ne rve root. 4. Small right foraminal protrusion L3-4 slightly impinges the exiting right L 3 nerve root. 5. Disc bulging L5-S1 impinges the traversing left S1 nerve root in the subart icular recess. 6. Moderate facet arthropathy L3-L4 L4-L5 and L5-S1.
== END 2020-09-29 14:35 | disposition home or self-care (01) ==
LOC: RADSHAW 14:38
PROVIDERS: PCP Nurse Practitioner Family; Visit Provider Surgery
DX: G89.29 Other chronic pain (principal); M48.061 Spinal stenosis, lumbar region without neurogenic claudication; M47.816 Spondylosis without myelopathy or radiculopathy, lumbar region; M47.817 Spondylosis without myelopathy or radiculopathy, lumbosacral region; M51.27 Other intervertebral disc displacement, lumbosacral region
CPT/HCPCS: 72146; 72148

== ENCOUNTER → 2020-10-03 14:15 | Outpatient (BNVA) | payer MEDICARE, OTHER, SELFPAY | PROVIDERS: PCP Nurse Practitioner Family; Visit Provider Nurse Practitioner Family | DX: R10.13 Epigastric pain (principal); K57.92 Diverticulitis of intestine, part unspecified, without perforation or abscess without bleeding | CPT/HCPCS: 85025 ==

== ENCOUNTER → 2020-10-07 08:38 | Outpatient (BNVA) | payer MEDICARE, OTHER, SELFPAY | PROVIDERS: PCP Nurse Practitioner Family; Visit Provider Nurse Practitioner Family | DX: R10.13 Epigastric pain (principal) | CPT/HCPCS: 87177; 87209 ==

== ENCOUNTER → 2020-10-20 12:48 | Outpatient (BNVA) | payer MEDICARE, OTHER, SELFPAY | PROVIDERS: PCP Nurse Practitioner Family; Referring Provider Surgery; Visit Provider Anesthesiology Pain Medicine | DX: M47.816 Spondylosis without myelopathy or radiculopathy, lumbar region (principal); M47.814 Spondylosis without myelopathy or radiculopathy, thoracic region; M51.36 Other intervertebral disc degeneration, lumbar region; M51.9 Unspecified thoracic, thoracolumbar and lumbosacral intervertebral disc disorder; K57.92 Diverticulitis of intestine, part unspecified, without perforation or abscess without bleeding; B02.29 Other postherpetic nervous system involvement; Z79.891 Long term (current) use of opiate analgesic | CPT/HCPCS: 99205 ==

== ENCOUNTER 2020-10-25 15:32 | Emergency (ER) | payer MEDICARE, OTHER, SELFPAY ==
[2020-10-25] VITALS (8 sets, daily range): BP systolic 130–158; BP diastolic 85–92; PULSE 81–90; RESP 12–25; TEMP 36.6; O2SAT 95–97
--- NOTE | 2020-10-25 15:42 | CTR_ITS ---
PROCEDURE INFORMATION: Exam: CT Abdomen And Pelvis With Contrast Exam date and time: 10/25/2020 3:42 PM Age: 65 years old Clinical indication: Abdominal pain; Localized; Lower; Additional info: Lower abd pain and back pain. Tender to touch in lower abd TECHNIQUE: Imaging protocol: Computed tomography of the abdomen and pelvis with contrast. Radiation optimization: All CT scans at this facility use at least one of these dose optimization techniques: automated exposure control; mA and/or kV adjustment per patient size (includes targeted exams where dose is matched to clinical indication); or iterative reconstruction. Contrast material: OMNI 300; Contrast volume: 95 ml; Contrast route: INTRAVENOUS (IV); COMPARISON: CT abdomen pelvis wo/w [id number] 05/05/2020 8:44 AM RADIATION DOSE METRICS: Total DLP (mGy-cm): 1565.78 FINDINGS: Lungs: There is calcified granuloma at the left lung base. Liver: There is a diffuse decrease in hepatic parenchymal density, consistent with mild fatty infiltration. Gallbladder and bile ducts: The gallbladder is normal. Pancreas: The pancreas is normal. Spleen: The spleen demonstrates punctate calcifications, consistent with remote granulomatous organism exposure. Adrenal glands: The adrenal glands are normal. Kidneys and ureters: There is a 2 cm size simple cyst arising from the lateral aspect of the left kidney. There is a 8 mm sized simple cortical cyst in the right kidney. There is no evidence of hydronephrosis. There is no evidence of renal or ureteral calcifications. Stomach and bowel: There is no evidence of colitis/diverticulitis. Appendix: A normal appendix is identified. Intraperitoneal space: There is no evidence of free intraperitoneal fluid. Vasculature: The aorta demonstrates moderate atherosclerotic calcification. There is no evidence of an abdominal aortic aneurysm. Lymph nodes: There is no evidence of lymphadenopathy. Urinary bladder: Unremarkable as visualized. Reproductive: The prostate gland demonstrates nonspecific parenchymal calcifications. The prostate demonstrates mild nonspecific enlargement. The seminal vesicles are normal. Bones/joints: Unremarkable. No acute fracture. Soft tissues: There are small bilateral inguinal hernias containing only fat. CT/CT abdomen pelvis w con* [id number] IMPRESSION: 1. No acute findings. 2. Old granulomatous disease 3. Mild fatty liver COMMENTS: Consistent with the [employer]'s Incidental Findings Committee white paper (J Am Mina Radiol 2018): Any incidental renal lesion less than 1 cm or classified as too small to characterize, or any incidental cystic renal lesion characterized as simple-appearing, is likely benign. No follow-up imaging is recommended for these lesions per consensus recommendations based on imaging criteria. Radiation Dose CTDIVOL = (mGy): DLP = 1565.78 (mGy-cm)
--- NOTE | 2020-10-25 16:13 | ED_ITS ---
HPI - Abdominal Pain General: Chief Complaint: Abdominal Pain Stated Complaint: abd pain Time Seen by Provider: 10/25/20 15:37 History of Present Illness: HPI narrative: 65-year-old male presents emergency room with complaints of bilateral upper abdominal pain. He has had extensive work-ups for this including at [facility] ended [facility] he seen Dr. Harper and Dr. Pardo. He had multiple CTs EGDs colonoscopies with no significant findings he has had MRI they did not think there is terribly much that could help him. He returns today stating he is continuing to have pain is little bit worse. He has vomited once in the whole course of this which is gone all on for the last 6 to 8 months. He has not had any vomiting recently no diarrhea recently. Denies fever sweats or chills is not as anything that aggravates or relieves it. He denies any medication on symptoms calf cramps hematuria denies any dysuria urgency or frequency has thoracic and lumbar spine to evaluate for nerve impingement that may be causing it those are relatively unremarkable he was referred to pain clinic previous testing otherwise has not shown anything conclusive. There is a note which correlates my exam today he has exquisite tenderness even with light touch across the abdominal wall. He denies any shingles in the past. He does not have a rash on his abdomen now or on his back. The same question has been post during previous work-ups and he denied in the past as well according to his old records. MD elicited complaint: abdominal pain Onset (ago): month(s) Pain Consistency: intermittent Location: Diffuse Severity: moderate Quality: cramping and aching Radiation: none Migration to: no migration Exacerbating factors: nothing Relieving factors: nothing Associated Symptoms: Reports GI cramping; Denies anorexia, belching, bloating, change in bowel habits, change in stool character, chills, coffee ground emesis, constipation, diarrhea, dyspepsia, dysuria, excessive flatus, fever(s), heartburn, hematochezia, hematuria, hematemesis, fecal incontinence, loose stools, melena, nausea, poor appetite, syncope and vomiting Review of Systems Const: Denies: fever(s) or chills ENMT: Denies: throat pain, ear or mastoid pain, nasal discharge or nasal congestion Card: Denies: syncope Resp: Denies: dyspnea, productive cough or non-productive cough GI: Reports: GI cramping; Denies: nausea, vomiting, hematemesis, coffee ground emesis, heartburn, diarrhea, constipation, bloating, belching, excessive flatus, fecal incontinence, change in bowel habits, change in stool character, hematochezia or melena : Denies: dysuria or hematuria Skin/Breast: Denies: rash or pruritus PFSH ED PFSH: Medical History Hyperlipidemia Type 2 diabetes mellitus without complication Surgical History H/O esophagogastroduodenoscopy History of cervical discectomy History of colonoscopy 2019 Status post left breast lumpectomy Family History Other CAD (coronary artery disease) Cancer Social History History of recent travel: No Physical Exam Const: COMMON NORMALS: no acute distress GENERAL APPEARANCE: cooperative and comfortable ORIENTATION/CONSCIOUSNESS: Yes awake, Yes oriented to person, Yes oriented to place and Yes oriented to time HENMT: COMMON NORMALS: normocephalic, atraumatic and hearing grossly normal bilaterally HEAD & SCALP: normocephalic and atraumatic Neck/C-Spine: COMMON NORMALS: no JVD Lymph: LYMPHATIC: no lymphadenopathy noted and no lymphedema noted Resp: COMMON NORMALS: normal respiratory effort, No retractions, No use of accessory muscles and clear to auscultation bilaterally AUSCULTATION: clear to auscultation bilaterally Cardio: COMMON NORMALS: no JVD, regular rate, regular rhythm and No murmurs present (Cardio) RATE: regular rate RHYTHM: regular rhythm GI: COMMON NORMALS: No hepatosplenomegaly present AUSCULTATION: Yes normoactive bowel sounds PALPATION: Yes Tenderness to palpation present (GI) Details: LUQ, No Guarding due to palpation present (GI) and Yes No hepatosplenomegaly present Extremity: COMMON NORMALS: normal to inspection, capillary refill normal, no clubbing, cyanosis or edema, no calf tenderness and no pedal edema Neuro: SENSORIUM/ORIENTATION: Yes oriented to person, Yes oriented to place and Yes oriented to time Skin: COMMON NORMALS: no rashes or lesions noted GENERAL SKIN EXAM: no rashes or lesions noted Course Vital Signs: Vital signs: Vital Signs Temperature 97.9 F 10/25/20 15:33 Pulse Rate 85 10/25/20 20:31 Respiratory Rate 16 10/25/20 20:31 Blood Pressure 158/87 10/25/20 20:31 Pulse Oximetry 97 10/25/20 20:31 MDM - Abdominal Pain MDM Narrative: Medical decision making narrative: Reviewed the findings with patient the only thing I could find him then seemed out of normal and MB is mildly elevated lactic acid. There is no sign of dehydration. He is not having a fever. Suspect some of the lactic acid may be due to his Metformin. He has abdominal discomfort but it is very superficial even to light touch particularly in the left upper quadrant he has severe discomfort. Reviewed all the findings with him. At this point he has had an extremely extensive work-up and not sure how much more we can really add other than screening for acute changes. Recommend that he continue follow-up through the pain clinic and Dr. Pardo. He did state they did an MRI of his back which based on my exam today could definitely be helpful since his pain is so superficial suspect he may have a component of neuropathy or nerve irritation at some level that is driving this. Patient encouraged to return if he has any significant changes did encourage in fluid intake as well. Lab Data: Labs: Lab Results 10/25/20 10/25/20 10/25/20 Range/Units 15:47 16:14 16:14 WBC 9.3 (4.0-10.0) 10^3/ uL RBC 4.89 (4.1-5.3) 10^6/u L Hgb 14.7 (11.7-16.6) g/dL Hct 43.5 (42.0-52.0) % MCV 89.0 (80-94) fl MCH 30.1 (28.0-34.0) pg MCHC 33.8 (30.0-36.0) g/dL RDW 13.1 (12.1-15.1) % Plt Count 296 (130-400) 10^3/c mm MPV 11.3 H (7.4-10.4) fL Neut % (Auto) 65.0 % Lymph % (Auto) 19.7 % Dickson % (Auto) 11.2 % Eos % (Auto) 2.9 % Baso % (Auto) 0.9 % Neut # (Auto) 6.02 (1.8-7.7) 10^3/u L Lymph # (Auto) 1.8 (0.8-4.8) 10^3/u L Dickson # (Auto) 1.0 H (0.2-0.9) 10^3/u L Eos # (Auto) 0.3 (0.0-0.8) 10^3/u L Baso # (Auto) 0.1 (0.0-0.1) 10^3/u L Nucleated RBC % (a uto) 0 % Nucleated RBCs # 0.0 /100WBC Sodium (136-145) mmol/L Potassium (3.5-5.1) mmol/L Chloride (98-107) mmol/L Carbon Dioxide (22-29) mmol/L Anion Gap (5-19) BUN (8-23) mg/dL Creatinine (0.7-1.2) mg/dL GFR Calculation (90-130) mL/min Glucose (65-115) mg/dL Calculated Osmolal ity (285-295) mOsm/k g Lactic Acid 3.0 H (0.5-2.2) mmol/L Lactic Acid (Sepsi s) (0.5-2.2) mmol/L Calcium (8.5-10.5) mg/dL Total Bilirubin (0.15-1.2) mg/dL AST (0-40) U/L ALT (0-41) U/L Alkaline Phosphata se (40-130) IU/L Total Protein (6.6-8.7) g/dL Albumin (3.5-5.2) g/dL Globulin (1.3-4.6) g/dL Lipase (13-60) U/L Urine Color Yellow (Yellow) Urine Appearance Clear (CLEAR) Urine pH 7 (5-7) Ur Specific Gravit y 1.010 (1.005-1.030) Urine Protein Neg (Negative) Urine Glucose (UA) 1+ H (Normal) Urine Ketones Negative (Negative) Urine Blood Neg (Negative) Urine Nitrate Negative (Negative) Urine Bilirubin Neg (Negative) Urine Urobilinogen Norm (Negative) mg/dL Ur Leukocyte Myah ase Negative (Negative) 10/25/20 10/25/20 Range/Units 16:14 19:29 WBC (4.0-10.0) 10^3/ uL RBC (4.1-5.3) 10^6/u L Hgb (11.7-16.6) g/dL Hct (42.0-52.0) % MCV (80-94) fl MCH (28.0-34.0) pg MCHC (30.0-36.0) g/dL RDW (12.1-15.1) % Plt Count (130-400) 10^3/c mm MPV (7.4-10.4) fL Neut % (Auto) % Lymph % (Auto) % Dickson % (Auto) % Eos % (Auto) % Baso % (Auto) % Neut # (Auto) (1.8-7.7) 10^3/u L Lymph # (Auto) (0.8-4.8) 10^3/u L Dickson # (Auto) (0.2-0.9) 10^3/u L Eos # (Auto) (0.0-0.8) 10^3/u L Baso # (Auto) (0.0-0.1) 10^3/u L Nucleated RBC % (a uto) % Nucleated RBCs # /100WBC Sodium 137 (136-145) mmol/L Potassium 4.6 (3.5-5.1) mmol/L Chloride 101 (98-107) mmol/L Carbon Dioxide 24 (22-29) mmol/L Anion Gap 16.6 (5-19) BUN 15 (8-23) mg/dL Creatinine 0.5 L (0.7-1.2) mg/dL GFR Calculation 165.9 H (90-130) mL/min Glucose 87 (65-115) mg/dL Calculated Osmolal ity 284 L (285-295) mOsm/k g Lactic Acid (0.5-2.2) mmol/L Lactic Acid (Sepsi s) 1.9 (0.5-2.2) mmol/L Calcium 8.7 (8.5-10.5) mg/dL Total Bilirubin 0.3 (0.15-1.2) mg/dL AST 20 (0-40) U/L ALT 23 (0-41) U/L Alkaline Phosphata se 64 (40-130) IU/L Total Protein 6.6 (6.6-8.7) g/dL Albumin 3.9 (3.5-5.2) g/dL Globulin 2.7 (1.3-4.6) g/dL Lipase 20 (13-60) U/L Urine Color (Yellow) Urine Appearance (CLEAR) Urine pH (5-7) Ur Specific Gravit y (1.005-1.030) Urine Protein (Negative) Urine Glucose (UA) (Normal) Urine Ketones (Negative) Urine Blood (Negative) Urine Nitrate (Negative) Urine Bilirubin (Negative) Urine Urobilinogen (Negative) mg/dL Ur Leukocyte Myah ase (Negative) Discharge Plan Discharge Patient Disposition: Home Clinical Impression: Flank pain, Abdominal pain, Type 2 diabetes mellitus without complication Condition: Stable Prescriptions: No Action brimonidine 0.2 % drops 1 drop ophthalmic (eye) Q8H RF: 0 latanoprost 0.005 % drops 1 drop ophthalmic (eye) DAILY RF: 0 timolol 0.5 % drops 1 drop ophthalmic (eye) BID RF: 0 metformin 1,000 mg tablet 1,000 mg PO BID Qty: 180 RF: 3 hydrocodone-acetaminophen 5-325 mg tablet 1 tab PO Q6H PRN (Reason: pain) 5 Days Qty: 20 RF: 0 gabapentin 300 mg capsule 300 mg PO TID Qty: 90 RF: 0 tizanidine 4 mg tablet 4 mg PO BID PRN (Reason: muscle spasticity) Qty: 60 RF: 0 lovastatin 20 mg tablet 20 mg PO DAILY Qty: 90 RF: 2 insulin asp prt-insulin aspart [Novolog Mix 70-30FlexPen U-100] 100 unit/mL (70-30) insulin pen See Rx Instructions SUBCUT BID Qty: 15 RF: 6 docusate sodium [Stool Softener] 100 mg Capsule 100 mg PO BID RF: 0 aspirin 81 mg Tablet,Chewable 81 mg PO DAILY RF: 0 Discharge Orders: Discharge ED (Routine); Ordered 10/25/20 Ordered By: Paxton Rinaldi Referrals: Elida Escobedo NP [Primary Care Provider] - Patient Instructions: Abdominal Pain (ED), Opioid Safety Activity Restrictions/Additional Instructions: Follow-up with Dr. Pardo, Case management will help you make the arrangements f or an appointment Coding Level of Care Code ED Location And Measurement Technician for Chg Fwd Exam Comprehensive
[2020-10-25 16:22] LABS: Add Urine Microscopic? NO; Charge for UA Resulting for Rev
[2020-10-25 16:46] LABS: Basophils # 0.1 10^3/uL (0.0-0.1); Basophils % 0.9 %; Eosinophils # 0.3 10^3/uL (0.0-0.8); Eosinophils % 2.9 %; Hematocrit 43.5 % (42.0-52.0); Hemoglobin 14.7 g/dL (11.7-16.6); Lymphocytes # 1.8 10^3/uL (0.8-4.8); Lymphocytes % 19.7 %; Mean Corpuscular HGB Conc 33.8 g/dL (30.0-36.0); Mean Corpuscular Hemoglobin 30.1 pg (28.0-34.0); Mean Platelet Volume 11.3 fL (7.4-10.4); Monocytes % 11.2 %; Neutrophils # 6.02 10^3/uL (1.8-7.7); Nucleated Red Blood Cells % 0 %; Platelet Count 296 10^3/cmm (130-400); Red Blood Count 4.89 10^6/uL (4.1-5.3); Red Cell Distribution Width 13.1 % (12.1-15.1); White Blood Count 9.3 10^3/uL (4.0-10.0)
[2020-10-25 17:04] LABS: Bilirubin Urine Neg (Negative); Blood Urine Neg (Negative); Glucose Urine UA 1+ (Normal); Ketones Urine Negative (Negative); Leukocyte Esterase Urine Negative (Negative); Nitrate Urine Negative (Negative); Protein Urine Neg (Negative); Urine Appearance Clear (CLEAR); Urine Color Yellow (Yellow); Urobilinogen Urine Norm (Negative); pH Urine 7 (5-7)
[2020-10-25 17:13] LABS: Alanine Aminotransferase 23 U/L (0-41); Albumin Level 3.9 g/dL (3.5-5.2); Alkaline Phosphatase 64 IU/L (40-130); Blood Urea Nitrogen 15 mg/dL (8-23); Calcium 8.7 mg/dL (8.5-10.5); Carbon Dioxide 24 mmol/L (22-29); Chloride 101 mmol/L (98-107); Globulin 2.7 g/dL (1.3-4.6); Glomerular Filtration Rate 165.9 mL/min (90-130); Glucose 87 mg/dL (65-115); Lipase 20 U/L (13-60); Osmolality Calculated 284 mOsm/kg (285-295); Sodium 137 mmol/L (136-145); Total Bilirubin 0.3 mg/dL (0.15-1.2); Total Protein 6.6 g/dL (6.6-8.7)
--- NOTE | 2020-10-25 17:15 | PC.NURSE ---
PATIENT STATES THAT HE IS IN PAIN, RATING IT A 10/10. THIS NURSE ASKED IF THE PATIENT WOULD LIKE FOR ME TO ASK THE PHYSICIAN FOR MEDICATION TO CONTROL HIS PAIN. PATIENT STATES THAT HE DOES NOT WANT TO LEAVE THIS HOSPITAL UNTIL THEY DO SOMETHING ABOUT HIS PAIN AND STOMACH. PATIENT NOTIFIED PHYSICIAN OF PATIENT WISHES. PATIENT HAS NO FURTHER NEEDS AT THIS TIME.
[2020-10-25 17:17] LABS: Anion Gap 16.6 (5-19); Aspartate Amino Transferase 20 U/L (0-40); Potassium 4.6 mmol/L (3.5-5.1)
[2020-10-25] MEDS: iohexol 300 mg/mL 100 mL Btl IV (17:29)
[2020-10-25 18:28] LABS: Reflex Lactate Order REFLEX LACTIC ORDERD
[2020-10-25] MEDS: HYDROmorphone 1 mg/mL INJ 1 mL IVP (19:23)
[2020-10-25] MEDS: ondansetron 2 mg/ML SDV 2 mL 4 MG IVP (19:23)
[2020-10-25 20:01] LABS: Lactic Acid level (Lactate) 1.9 mmol/L (0.5-2.2)
--- NOTE | 2020-10-26 10:48 | DCPLANNER ---
credit portfolio manager had message to schedule a follow up appointment for patient with Dr. Pardo at [facility] General Surgery. credit portfolio manager emailed patients information to both Nerissa and Gloria at [facility] General [facility]. Patients information will be printed and reviewed. Clinic will call patient with appointment information.
--- NOTE | 2020-10-27 10:09 | DCPLANNER ---
quality assurance test program manager was notified from general surgery, was told that patient has been seen by Dr. Pardo and has been referred to pain management. Patient has a follow up appointment with Dr. Moctezuma on 11.03.20, and that clinic will follow up with patient after he has been treated by pain management.
== END 2020-10-25 20:33 | disposition home or self-care (01) ==
PROVIDERS: Emergency Provider Family Medicine; PCP Nurse Practitioner Family
DX: R10.9 Unspecified abdominal pain (principal); E11.9 Type 2 diabetes mellitus without complications; Z79.82 Long term (current) use of aspirin; Z79.4 Long term (current) use of insulin; E78.5 Hyperlipidemia, unspecified
CPT/HCPCS: 74177; 80053; 81003; 83036; 83605; 83690; 85025; 96374; 96375; 99284; J1170; J2405; Q9967

== ENCOUNTER → 2020-11-01 12:51 | Outpatient (BNVA) | payer MEDICARE, OTHER, SELFPAY | PROVIDERS: PCP Nurse Practitioner Family; Visit Provider Orthopaedic Surgery | DX: M51.36 Other intervertebral disc degeneration, lumbar region (principal); M48.061 Spinal stenosis, lumbar region without neurogenic claudication | CPT/HCPCS: 72070; 72110 ==

== ENCOUNTER → 2020-11-03 14:43 | Outpatient (BNVA) | payer MEDICARE, OTHER, SELFPAY | PROVIDERS: PCP Nurse Practitioner Family; Visit Provider Anesthesiology Pain Medicine | DX: G89.29 Other chronic pain (principal); M48.061 Spinal stenosis, lumbar region without neurogenic claudication; M47.816 Spondylosis without myelopathy or radiculopathy, lumbar region; M47.814 Spondylosis without myelopathy or radiculopathy, thoracic region; M51.36 Other intervertebral disc degeneration, lumbar region; M51.9 Unspecified thoracic, thoracolumbar and lumbosacral intervertebral disc disorder; B02.29 Other postherpetic nervous system involvement; R10.12 Left upper quadrant pain | CPT/HCPCS: 99213 ==

== ENCOUNTER 2020-11-09 06:00 | Outpatient (RCR) | payer MEDICARE, OTHER, SELFPAY | END 2020-12-08 23:59 | disposition home or self-care (01) | LOC: GPT 06:00 | PROVIDERS: PCP Family Medicine; Referring Provider Orthopaedic Surgery; Visit Provider Orthopaedic Surgery | DX: M54.9 Dorsalgia, unspecified (principal) | CPT/HCPCS: 97032; 97110; 97140; 97161; 97530 ==

== ENCOUNTER → 2020-11-10 13:09 | Outpatient (BNVA) | payer MEDICARE, OTHER, SELFPAY | PROVIDERS: PCP Nurse Practitioner Family; Visit Provider Anesthesiology Pain Medicine | DX: G89.29 Other chronic pain (principal); M51.17 Intervertebral disc disorders with radiculopathy, lumbosacral region; M47.816 Spondylosis without myelopathy or radiculopathy, lumbar region; M47.814 Spondylosis without myelopathy or radiculopathy, thoracic region; M51.36 Other intervertebral disc degeneration, lumbar region; M51.9 Unspecified thoracic, thoracolumbar and lumbosacral intervertebral disc disorder; G62.9 Polyneuropathy, unspecified; R10.12 Left upper quadrant pain; B02.29 Other postherpetic nervous system involvement; Z79.891 Long term (current) use of opiate analgesic | CPT/HCPCS: 99213 ==

== ENCOUNTER → 2020-11-18 08:41 | Outpatient (BNVA) | payer MEDICARE, OTHER, SELFPAY | PROVIDERS: PCP Nurse Practitioner Family; Visit Provider Anesthesiology Pain Medicine | DX: Z01.812 Encounter for preprocedural laboratory examination (principal); E11.9 Type 2 diabetes mellitus without complications; G89.29 Other chronic pain; M54.5 Low back pain | CPT/HCPCS: 36416; 62323; 82962 ==

== ENCOUNTER → 2020-12-02 09:25 | Outpatient (BNVA) | payer MEDICARE, OTHER, SELFPAY | PROVIDERS: PCP Nurse Practitioner Family; Visit Provider Anesthesiology Pain Medicine | DX: M51.17 Intervertebral disc disorders with radiculopathy, lumbosacral region (principal); M47.816 Spondylosis without myelopathy or radiculopathy, lumbar region; M51.36 Other intervertebral disc degeneration, lumbar region; M47.814 Spondylosis without myelopathy or radiculopathy, thoracic region; M51.9 Unspecified thoracic, thoracolumbar and lumbosacral intervertebral disc disorder; R10.12 Left upper quadrant pain; K57.92 Diverticulitis of intestine, part unspecified, without perforation or abscess without bleeding; B02.29 Other postherpetic nervous system involvement; Z79.891 Long term (current) use of opiate analgesic | CPT/HCPCS: 99214 ==

== ENCOUNTER 2020-12-09 06:00 | Outpatient (RCR) | payer MEDICARE, OTHER, SELFPAY | END 2021-01-08 23:59 | disposition home or self-care (01) | LOC: GPT 06:00 | PROVIDERS: PCP Family Medicine; Referring Provider Orthopaedic Surgery; Visit Provider Orthopaedic Surgery | DX: M54.9 Dorsalgia, unspecified (principal) | CPT/HCPCS: 97032; 97110; 97140; 97530 ==

== ENCOUNTER → 2020-12-09 08:21 | Outpatient (BNVA) | payer MEDICARE, OTHER, SELFPAY | PROVIDERS: PCP Nurse Practitioner Family; Visit Provider Anesthesiology Pain Medicine | DX: Z01.812 Encounter for preprocedural laboratory examination (principal); E11.9 Type 2 diabetes mellitus without complications; M47.814 Spondylosis without myelopathy or radiculopathy, thoracic region; Z79.891 Long term (current) use of opiate analgesic | CPT/HCPCS: 36416; 64490; 64491; 64492; 82962; J1030; J3490 ==

== ENCOUNTER → 2020-12-22 09:34 | Outpatient (BNVA) | payer MEDICARE, OTHER, SELFPAY | PROVIDERS: PCP Nurse Practitioner Family; Visit Provider Anesthesiology Pain Medicine | DX: M47.816 Spondylosis without myelopathy or radiculopathy, lumbar region (principal); M47.814 Spondylosis without myelopathy or radiculopathy, thoracic region; M51.36 Other intervertebral disc degeneration, lumbar region; M51.9 Unspecified thoracic, thoracolumbar and lumbosacral intervertebral disc disorder; R10.12 Left upper quadrant pain; B02.29 Other postherpetic nervous system involvement; E11.9 Type 2 diabetes mellitus without complications; Z79.891 Long term (current) use of opiate analgesic; Z79.4 Long term (current) use of insulin | CPT/HCPCS: 99214 ==

== ENCOUNTER → 2021-01-09 10:02 | Outpatient (BNVA) | payer MEDICARE, OTHER, SELFPAY | PROVIDERS: PCP Nurse Practitioner Family; Visit Provider Nurse Practitioner Family | DX: R10.12 Left upper quadrant pain (principal); R20.8 Other disturbances of skin sensation | CPT/HCPCS: 80053; 85025; 85651; 86140; 86787 ==

== ENCOUNTER → 2021-06-02 10:11 | Outpatient (BNVA) | payer MEDICARE, OTHER, SELFPAY | PROVIDERS: PCP Nurse Practitioner Family; Visit Provider Nurse Practitioner Family | DX: R30.0 Dysuria (principal); E78.5 Hyperlipidemia, unspecified; E11.9 Type 2 diabetes mellitus without complications | CPT/HCPCS: 80053; 80061; 81000; 83036 ==

== ENCOUNTER 2024-07-25 15:15 | Emergency (ER) | payer MEDICARE, OTHER, SELFPAY ==
[2024-07-25 15:23] VITALS: BP 147/84; PULSE 96; RESP 17; TEMP 36.9; O2SAT 99; BMI 24.2
[2024-07-25] MEDS: BUPivacaine 0.5% INJ 10 mL 3 ML INJECTION (17:30)
[2024-07-25] MEDS: tetanus-dipt-pertussis 0.5 mL SDV IM (17:31)
[2024-07-25] MEDS: cefTRIAXone 1,000 MG in water for injection-sterile 2.1 ML 2.1 MG IM (17:57)
--- NOTE | 2024-07-25 18:43 | W.ED.WOUNDLC ---
HPI - Wound/Laceration General: Chief Complaint: Wound/Laceration Stated Complaint: right hand, middle finger injury Time Seen by Provider: 07/25/24 15:39 Source: patient Mode of arrival: ambulatory Limitations: no limitations History of Present Illness: Patient is a 69-year-old male that presents to the emergency department with laceration to his right middle finger. 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 He denies any crush injury. He denies any bony pain. He does have a laceration along the ulnar side of the finger that extends from roughly the PCP joint to the tip of the finger. He denies any numbness or tingling. He denies any allergies to any medications. He did have penicillin listed but he states that was an old for serum medication that caused some nausea and vomiting. The patient is a diabetic. He states he has had Keflex in the past without difficulty. He also reports he has had Rocephin without any problems. He presents to the emergency department for further evaluation and treatment. Associated symptoms: Denies chills, fever(s), nausea or vomiting Related Data Home Medications ?Medication ?Instructions ?Recorded ?Confirmed latanoprost 0.005 % eye drops 1 drop ophthalmic (eye) DAILY 03/20/19 01/09/21 timolol 0.5 % eye drops 1 drop ophthalmic (eye) BID 03/20/19 01/09/21 aspirin 81 mg chewable tablet 81 mg PO DAILY 07/14/20 01/09/21 docusate sodium 100 mg capsule 100 mg PO BID 07/14/20 01/09/21 (Stool Softener) aspirin 81 mg chewable tablet 81 mg PO DAILY 07/23/20 07/23/20 brimonidine 0.2 % eye drops 1 drp ophthalmic (eye) Q8H 07/23/20 07/23/20 docusate sodium 100 mg capsule 100 mg PO BID 07/23/20 07/23/20 (Colace) insulin aspar prt-insulin aspart 60 unit SUBCUT BID 07/23/20 07/23/20 100 unit/mL (70-30) subcutaneous soln (Novolog Mix 70-30 U-100 Insuln) latanoprost 0.005 % eye drops 1 drp ophthalmic (eye) DAILY 07/23/20 07/23/20 lovastatin 20 mg tablet 20 mg PO DAILY 07/23/20 07/23/20 metformin 1,000 mg tablet 1,000 mg PO BID 07/23/20 07/23/20 pantoprazole 40 mg tablet,delayed 40 mg PO DAILY 07/23/20 07/23/20 release pioglitazone 45 mg tablet (Actos) 45 mg PO DAILY 07/23/20 07/23/20 timolol 0.5 % eye drops 1 drp ophthalmic (eye) BID 07/23/20 07/23/20 zolpidem 10 mg tablet (Ambien) 10 mg PO BEDTIME 07/23/20 07/23/20 amitriptyline 25 mg tablet 25 mg PO DAILY 06/02/21 06/02/21 omeprazole 40 mg capsule,delayed 40 mg PO DAILY 06/02/21 06/02/21 release tramadol 50 mg tablet See Rx Instructions PO BID PRN 06/02/21 06/02/21 Previous Rx's ?Medication ?Instructions ?Recorded metoclopramide HCl 10 mg tablet 10 mg PO Q6H PRN nausea and 07/23/20 (Reglan) vomiting #30 tabs metformin 1,000 mg tablet 1,000 mg PO BID #180 tabs 01/02/21 lovastatin 40 mg tablet 40 mg PO DAILY #90 tabs 06/02/21 insulin aspar prot-insulin aspart See Rx Instructions SUBCUT BID #36 07/07/21 100 unit/mL (70-30) subcutaneous ea pen (Novolog Mix 70-30FlexPen U-100) zolpidem 10 mg tablet 10 mg PO .hs PRN insomnia #30 tabs 07/07/21 cephalexin 500 mg capsule 500 mg PO Q6H #16 caps 07/25/24 Allergies Allergy/AdvReac Type Severity Reaction Status Date / Time Penicillins Allergy Horse PCN Verified 07/17/21 13:23 Review of Systems General: Reports: 10 or more systems reviewed and unremarkable except in HPI and below Const: Denies: fever(s) or chills Eyes: Denies: change in vision ENMT: Denies: odynophagia or mouth pain Card: Denies: chest pain or irregular heart rhythm Resp: Denies: dyspnea, productive cough or non-productive cough GI: Denies: abdominal pain, nausea or vomiting : Denies: difficulty urinating Musc: Reports: back pain (Chronic, unchanged); Denies: neck pain Skin/Breast: Reports: other (Laceration to the radial side of the right middle finger) Neuro: Denies: headache(s), numbness in extremities, weakness in extremities or sensory changes Psych: Denies: anxiety Endo: Denies: polyuria or polydipsia Steve/Lymph: Denies: petechiae All/Imm: Denies: urticaria or tongue swelling PFSH ED PFSH: Medical History Type 2 diabetes mellitus without complication Hyperlipidemia Surgical History Status post left breast lumpectomy History of cervical discectomy History of colonoscopy 2019 H/O esophagogastroduodenoscopy Family History Other CAD (coronary artery disease) Cancer Social History Smoking and tobacco/nicotine status: former use of tobacco/nicotine Physical Exam Const: COMMON NORMALS: no acute distress GENERAL APPEARANCE: cooperative ORIENTATION/CONSCIOUSNESS: Yes awake, Yes oriented to person, Yes oriented to place and Yes oriented to time HENMT: COMMON NORMALS: normocephalic, atraumatic, external ears normal and Normal external nose present HEAD & SCALP: normocephalic and atraumatic NOSE: Normal external nose present EXTERNAL EAR: Yes external ears normal Eye: COMMON NORMALS: conjunctivae normal CONJUNCTIVA: Yes conjunctivae normal Neck/C-Spine: GENERAL: Yes normal visual inspection, No anterior neck swelling and No tender Resp: COMMON NORMALS: normal respiratory effort and clear to auscultation bilaterally AUSCULTATION: clear to auscultation bilaterally, no crackles, no rales, no rhonchi and no wheezes Cardio: COMMON NORMALS: regular rate and regular rhythm RATE: regular rate RHYTHM: regular rhythm GI: COMMON NORMALS: non-tender Extremity: RIGHT UPPER EXTREMITY: Yes hand & digits (4 cm laceration, radial side of the right middle finger) Right hand and digits: Yes neurovascular exam and Yes tendon exam Neuro: COMMON NORMALS: moves all extremities SENSORIUM/ORIENTATION: Yes oriented to person, Yes oriented to place and Yes oriented to time Psych: COMMON NORMALS: mental status grossly normal, cooperative and speech normal SPEECH: Yes normal speech Skin: TRAUMA: laceration (4 cm, right middle finger on the radial side) irregular, motor nerve function intact and sensation intact; no pulsatile bleeding Procedures Laceration Laceration 1: Site: other (Right middle finger) Side (If applicable): right Size (cm): 4 Description: irregular Depth: simple, single layer Local Anesthetic: bupivacaine 0.5% Amount of anesthesia used (mL): 3 (Digital block) Skin layer closed with: other (Prolene) Size (cm): 4-0 Number of sutures: 6 Technique: simple, interrupted Course Vital Signs: Vital signs: Vital Signs Temperature 98.4 F 07/25/24 15:23 Pulse Rate 96 07/25/24 15:23 Respiratory Rate 17 07/25/24 15:23 Blood Pressure 147/84 07/25/24 15:23 Pulse Oximetry 99 07/25/24 15:23 Oxygen Delivery Me thod Room Air 07/25/24 15:23 MDM - Wound/Laceration Medical Decision Making Patient tolerated the procedure well with no immediate complications. He was advised he will need to follow-up with his primary care provider for suture removal in 10 days. He was advised to watch for signs of infection. Wound was adequately irrigated. The patient was given 1 g of Rocephin IM in the emergency department and will be discharged on Keflex to use to prevent infection just because of the dirty nature of the wound (the patient was working with animals, vaccinated them). I recommended that he keep the finger clean and dry and use [id number] antibiotic ointment each day with dressing changes. I advise he follow-up with his primary care provider in 10 days for suture removal or go to the urgent care or return to the emergency department. The patient was advised to return to the emergency department with any sign of infection such as red streaking, pus draining, fever or any other worsening symptoms. The patient expressed understanding. Differential Diagnosis Likely laceration No radiology studies performed this visit Critical Care Time Critical Care Time: Critical Care Time: No Discharge Plan Discharge Patient Disposition: Home Clinical Impression: Laceration of right middle finger Qualifiers: Encounter type: initial encounter Damage to nail status: without damage Foreign body presence: without foreign body Qualified Code(s): S61.212A - Laceration without foreign body of right middle finger without damage to nail, initial encounter Condition: Stable Prescriptions: New cephalexin 500 mg capsule 500 mg PO Q6H Qty: 16 0RF No Action latanoprost 0.005 % drops 1 drop ophthalmic (eye) DAILY timolol 0.5 % drops 1 drop ophthalmic (eye) BID metformin 1,000 mg tablet 1,000 mg PO BID Qty: 180 3RF lovastatin 40 mg tablet 40 mg PO DAILY Qty: 90 0RF tramadol 50 mg tablet See Rx Instructions PO BID PRN Rx Instructions: 1-2 tablets PO twice a day PRN; omeprazole 40 mg capsule,delayed release(DR/EC) 40 mg PO DAILY amitriptyline 25 mg tablet 25 mg PO DAILY insulin asp prt-insulin aspart [Novolog Mix 70-30FlexPen U-100] 100 unit/mL (70-30) insulin pen See Rx Instructions SUBCUT BID Qty: 36 6RF Rx Instructions: 60 units in am and 60 units in pm SUBCUT twice a day; zolpidem 10 mg tablet 10 mg PO .hs PRN (Reason: insomnia) Qty: 30 0RF latanoprost 0.005 % Drops 1 drp OPHTHALMIC (EYE) DAILY pioglitazone [Actos] 45 mg Tablet 45 mg PO DAILY timolol 0.5 % Drops 1 drp OPHTHALMIC (EYE) BID pantoprazole 40 mg Tablet,Delayed Release (Dr/Ec) 40 mg PO DAILY metformin 1,000 mg Tablet 1,000 mg PO BID brimonidine 0.2 % Drops 1 drp OPHTHALMIC (EYE) Q8H aspirin 81 mg Tablet,Chewable 81 mg PO DAILY zolpidem [Ambien] 10 mg Tablet 10 mg PO BEDTIME insulin asp prt-insulin aspart [Novolog Mix 70-30 U-100 Insuln] 100 unit/mL (70-30) Solution 60 unit SUBCUT BID Colace 100 mg Capsule 100 mg PO BID lovastatin 20 mg Tablet 20 mg PO DAILY Reglan 10 mg tablet 10 mg PO Q6H PRN (Reason: nausea and vomiting) Qty: 30 0RF docusate sodium [Stool Softener] 100 mg Capsule 100 mg PO BID aspirin 81 mg Tablet,Chewable 81 mg PO DAILY Discharge Orders: Discharge ED (Routine); Ordered 07/25/24 Ordered By: Noé Schuneman Referrals: Neno Orlando MD [Primary Care Provider, Family Practice] Discharge Diet: Usual diet Discharge Activity: Limit activity as instructed Patient Instructions: Opioid Safety, Pain Management, Care For Your Stitches (ED) Activity Restrictions/Additional Instructions: Take the antibiotics as directed. Your prescription was sent electronically to the [facility] pharmacy in [place]. You can begin this tomorrow night. Keep the wound clean and dry. Wash the wound daily in warm, running water. Blot it dry afterwards and use [id number] antibiotic ointment as directed. Use a clean sterile dressing daily after placing the antibiotic ointment. Watch for signs of infection such as red streaking, pus draining, fever etc. Follow-up with your doctor, the urgent care, or the emergency department for suture removal in 10 days. Return to the emergency department with any worsening symptoms or signs of infection. Print Language: [place] Coding Level of Care Code ED Scalemaker for Kunal Olivo
[2024-07-25] MEDS: bacitracin ointment Pkt 1 EACH TOPICAL (19:17)
== END 2024-07-25 19:19 | disposition home or self-care (01) ==
PROVIDERS: Emergency Provider Physician Assistant; PCP Family Medicine
DX: S61.212A Laceration without foreign body of right middle finger without damage to nail, initial encounter (principal); Z79.84 Long term (current) use of oral hypoglycemic drugs; Z79.82 Long term (current) use of aspirin; Z79.4 Long term (current) use of insulin; Z87.891 Personal history of nicotine dependence; E11.9 Type 2 diabetes mellitus without complications; E78.5 Hyperlipidemia, unspecified; X58.XXXA Exposure to other specified factors, initial encounter
CPT/HCPCS: 12002; 12345; 90471; 90715; 96372; 99284; J0696; J3490; J9999